=== PATIENT | female | born 1960 | race Caucasian/White ===

== ENCOUNTER 2024-02-21 07:07 | Day surgery (SDC) | payer OTHER ==
[~2024-02-21] VITALS: Ht 160 cm; Wt 93.2 kg
[2024-02-21] MEDS ORDERED: SIMETHICONE 40 MG/0.6 ML ML ONE (07:48)
[2024-02-21] MEDS ORDERED: MEPERIDINE 100 MG INJ. 100 MG/ML VIAL ONE (07:49)
[2024-02-21] MEDS ORDERED: MIDAZOLAM HCL 5 MG/5 ML VIAL ONE (07:49)
[2024-02-21] MEDS ORDERED: BENZOCAINE 20% 0.5mL UD SPRAY MM ONE (09:03)
[2024-02-21 11:33] VITALS: O2SAT 94
[2024-02-21 16:32] VITALS: BP_SYST 116; PULSE 70; RESP 14
== END 2024-02-21 10:24 | disposition home or self-care (01) ==
LOC: SDS 07:07 → SMU 07:08 → SDS 10:24
PROVIDERS: ATTEND Internal Medicine
DX: R19.4 Change in bowel habit (principal); D12.3 Benign neoplasm of transverse colon; K21.00 Gastro-esophageal reflux disease with esophagitis, without bleeding; K29.50 Unspecified chronic gastritis without bleeding; R10.32 Left lower quadrant pain; R10.13 Epigastric pain; K57.30 Diverticulosis of large intestine without perforation or abscess without bleeding; K64.8 Other hemorrhoids; I10 Essential (primary) hypertension; E78.5 Hyperlipidemia, unspecified; Z88.8 Allergy status to other drugs, medicaments and biological substances; Z79.899 Other long term (current) drug therapy
CPT/HCPCS: 45380; 45385; 43239; 99152; 88305; 88312; 88313; 99153; G0378; J2250; J2175